=== PATIENT | female | born 1970 | race Caucasian/White ===

== ENCOUNTER 2017-09-10 08:06 | Outpatient (CLI) | payer BC | END 2017-09-10 08:07 | disposition home or self-care (01) | LOC: BICMAMMO 08:06 | PROVIDERS: ATTEND Physician Assistant | DX: Z12.31 Encounter for screening mammogram for malignant neoplasm of breast (principal); Z80.3 Family history of malignant neoplasm of breast | CPT/HCPCS: 77063; 77067 ==

== ENCOUNTER 2017-11-19 07:35 | Outpatient (CLI) | payer BC ==
--- NOTE | 2017-11-19 09:00 | CT ---
CT ABDOMEN AND PELVIS WITH CONTRAST: Date: 11/19/17 HISTORY: GERD K21.9, lower abdominal pain R10.30, urinary tract infection N39.0. Previous history of uterine a blation. COMPARISON: None. FINDINGS: Lung bases are clear. No pericardial effusion. There are sub-5 mm hypodensities of hepatic segment 8, too small to fully characterize, but statistic ally likely cysts. There is a hypodensity interpolar right kidney measuring just over fluid attenuati on. The spleen and pancreas are unremarkable. Adrenal glands are unremarkable. Aortoiliac contour is ronny neurysmal. No dilated loops of large or small bowel. The appendix is visualized and is normal. No retroperitonea l or mesenteric adenopathy. Mild facet arthrosis L5-S1. Remainder of skeleton is unremarkable. Mild narrowing of the pubic symphysis. IMPRESSION: 1. No acute inflammatory process in the abdomen or pelvis. 2. Sub-5 mm hepatic hypodensities in segment 8 and 4B, too small to fully characterize, although sta tistically likely a cyst. 3. Hypodensity interpolar right kidney measuring just over fluid attenuation. Follow-up ultrasound i n 6 months-1 year of the kidneys is recommended. 4. 2.0 mm calculus inferior pole left renal collecting system without evidence of obstructive uropat hy or recently passed stone. 5. Normal appendix. POS: BEL
== END 2017-11-19 07:36 | disposition home or self-care (01) ==
LOC: SCSCT 07:35
PROVIDERS: ATTEND Internal Medicine Gastroenterology
DX: K21.9 Gastro-esophageal reflux disease without esophagitis (principal); N39.0 Urinary tract infection, site not specified; R10.30 Lower abdominal pain, unspecified; R93.3 Abnormal findings on diagnostic imaging of other parts of digestive tract; N20.0 Calculus of kidney; R93.421 Abnormal radiologic findings on diagnostic imaging of right kidney; Z80.0 Family history of malignant neoplasm of digestive organs
CPT/HCPCS: 74177

== ENCOUNTER 2018-09-15 07:58 | Outpatient (CLI) | payer BC ==
--- NOTE | 2018-09-15 08:45 | MMO ---
Bilateral MAMMO Bilat Screen [facility]. CLINICAL HISTORY: Patient is 47 years old and is seen for screening. The patient has no personal history of cancer. VIEWS: The views performed were: bilateral craniocaudal with tomosynthesis and bilateral mediolateral oblique with tomosynthesis. FILMS COMPARED: The present examination has been compared to prior imaging studies performed at [facility] on 02/29/2016 and 09/10/2017, and at [facility] on 02/22/2014 and 03/09/2014. MAMMOGRAM FINDINGS: The breasts are heterogeneously dense, which could obscure a lesion on mammography. There are no suspicious masses, suspicious calcifications, or new areas of architectural distortion. IMPRESSION: THERE IS NO MAMMOGRAPHIC EVIDENCE OF MALIGNANCY. A ROUTINE FOLLOW-UP MAMMOGRAM IN 1 YEAR IS RECOMMENDED. THE RESULTS OF THIS EXAM WERE SENT TO THE PATIENT. ACR BI-RADS Category 1 - Negative MAMMOGRAPHY NOTE: 1. A negative mammogram report should not delay a biopsy if a dominant of clinically suspicious mass is present. 2. Approximately 10% to 15% of breast cancers are not detected by mammography. 3. Adenosis and dense breasts may obscure an underlying neoplasm.
== END 2018-09-15 07:59 | disposition home or self-care (01) ==
LOC: BICMAMMO 07:58
PROVIDERS: ATTEND Physician Assistant
DX: Z12.31 Encounter for screening mammogram for malignant neoplasm of breast (principal)
CPT/HCPCS: 77063; 77067